=== PATIENT | male | born 1950 ===

== ENCOUNTER 2019-07-24 11:07 | Emergency (ER) | payer MEDICARE, SELFPAY | END 2019-07-24 11:10 | disposition left against medical advice (07) | LOC: ER 08-12 08:12 | PROVIDERS: Emergency Provider Emergency Medicine; Family Provider Family Medicine | DX: Z53.21 Procedure and treatment not carried out due to patient leaving prior to being seen by health care provider (principal) | CPT/HCPCS: 99281 ==

== ENCOUNTER 2020-08-18 13:19 | Outpatient (CLI) | payer MEDICARE, SELFPAY | END 2020-08-18 13:20 | disposition home or self-care (01) | LOC: WOUND 13:22 | PROVIDERS: Family Provider Family Medicine; Visit Provider Thoracic Surgery (Cardiothoracic Vascular Surgery) | DX: E11.622 Type 2 diabetes mellitus with other skin ulcer (principal); L97.822 Non-pressure chronic ulcer of other part of left lower leg with fat layer exposed | CPT/HCPCS: 11042; G0463 ==

== ENCOUNTER 2020-08-25 09:20 | Outpatient (CLI) | payer MEDICARE, SELFPAY ==
--- NOTE | 2020-08-25 10:29 | XR_ITS ---
WS: [id number] LEFT TIBIA-FIBULA 2 VIEWS HISTORY: PAIN, REDNESS, NONHEALING ULCER COMPARISON: None available. Below the knee amputation. There is soft tissue edema in the amputation region. Very minimal soft tis hardy ulceration along the medial amputation region. The cortex of the bone is intact. No osteomyelitis identified radiographically. Vascular calcifications in the femoral artery. XR/XR tibia fibula LT 2V [id number] IMPRESSION: 1. Below the knee amputation with no radiographic evidence for osteomyelitis. 2. Soft tissue edema distal to the tibia amputation.
== END 2020-08-25 09:21 | disposition home or self-care (01) ==
PROVIDERS: Family Provider Family Medicine; Visit Provider Thoracic Surgery (Cardiothoracic Vascular Surgery)
DX: E11.622 Type 2 diabetes mellitus with other skin ulcer (principal); L53.9 Erythematous condition, unspecified; L97.822 Non-pressure chronic ulcer of other part of left lower leg with fat layer exposed; R52 Pain, unspecified
CPT/HCPCS: 11042; 73590

== ENCOUNTER 2020-09-01 08:58 | Outpatient (CLI) | payer MEDICARE, SELFPAY | END 2020-09-01 08:59 | disposition home or self-care (01) | LOC: WOUND 09:04 | PROVIDERS: Family Provider Family Medicine; Visit Provider Thoracic Surgery (Cardiothoracic Vascular Surgery) | DX: E11.622 Type 2 diabetes mellitus with other skin ulcer (principal); L97.822 Non-pressure chronic ulcer of other part of left lower leg with fat layer exposed | CPT/HCPCS: 11042 ==

== ENCOUNTER 2020-09-08 14:13 | Outpatient (CLI) | payer MEDICARE, SELFPAY | END 2020-09-08 14:14 | disposition home or self-care (01) | LOC: WOUND 14:14 | PROVIDERS: Family Provider Family Medicine; Visit Provider Thoracic Surgery (Cardiothoracic Vascular Surgery) | DX: E11.622 Type 2 diabetes mellitus with other skin ulcer (principal); L97.822 Non-pressure chronic ulcer of other part of left lower leg with fat layer exposed | CPT/HCPCS: 11042 ==

== ENCOUNTER 2020-09-15 08:50 | Outpatient (CLI) | payer MEDICARE, SELFPAY | END 2020-09-15 08:51 | disposition home or self-care (01) | LOC: WOUND 08:51 | PROVIDERS: PCP Family Medicine; Visit Provider Thoracic Surgery (Cardiothoracic Vascular Surgery) | DX: E11.622 Type 2 diabetes mellitus with other skin ulcer (principal); L97.822 Non-pressure chronic ulcer of other part of left lower leg with fat layer exposed | CPT/HCPCS: 11042 ==

== ENCOUNTER 2020-09-16 09:51 | Outpatient (CLI) | payer MEDICARE, SELFPAY ==
--- NOTE | 2020-09-16 10:36 | CT_ITS ---
WS: [id number] CT ABDOMEN AND PELVIS NONCONTRAST HISTORY: NEPHROLITHIASIS, RENAL CALCULUS WITH CALCULUS OF URETER TECHNIQUE: Imaging performed through the abdomen and pelvis. Coronal and sagittal reformats are submi tted. All CT scans at [facility] use at least one of these dose optimization techniques: automated exposure control; mA and/or kV adjustment per patient size (includes targeted exams where d ose is matched to clinical indication); or iterative reconstruction. DLP: 1078.43 mGycm COMPARISON: None available. Lower thorax: Lung bases are clear. Visualized heart is normal. No hiatal hernia. Liver: Mild hepatic steatosis. Granuloma in the LEFT hepatic lobe. No bile duct dilatation. Gallbladder: Well distended gallbladder contains stones. No wall thickening or acute cholecystitis. Pancreas: There is extensive calcification throughout the pancreas. Pancreas is atrophied. Spleen: Normal. Adrenal glands: Normal. No mass. Right kidney: Normal size RIGHT kidney. There is very mild perinephric stranding. Nonobstructing 2 mm calcification in the mid kidney. RIGHT ureter is normal. Left kidney: LEFT kidney is slightly enlarged. There is a double pigtail LEFT ureteral stent. The pro ximal end is coiled in the renal pelvis. Distal end is coiled in a nondistended bladder. There is per sistent mild to moderate hydronephrosis of the LEFT kidney despite the stent. The LEFT ureter is dila arlene nearly throughout its length. Suspicious for ureteral calcifications. Ureteral calcifications are in the mid and distal ureter measuring 4 to 5 mm. There are additional small calcifications in the L EFT renal pelvis which are nonobstructing. Aorta: Mild atherosclerosis with no aneurysm. There is very heavy calcific burden throughout the sple any artery. Mild ectasia of the mid splenic artery. Small shoddy retroperitoneal lymph nodes. Additional small lymph nodes along the inguinal regions. GI tract: Diffuse moderate fecal retention. The appendix is normal. No GI tract obstruction. Abdominal wall: Fat-containing umbilical hernia. Pelvis: Prostate gland is not identified. Nondistended urinary bladder. LEFT ureteral pigtail is cold in the nondistended bladder. Osseous structures: L4 anterolisthesis by 3 mm. No osteoblastic or osteolytic bone disease. Mild bila teral SI joint narrowing. CT/CT kidney stone [id number] IMPRESSION: 1. Double pigtail LEFT ureteral stent is in good position. 2. Despite the LEFT ureteral stent there is mild to moderate hydronephrosis an d hydroureter. 3. 2 calcific densities inseparable from the ureteral stent. These calcificati ons measure approximately 4 to 5 mm. One is at the mid ureter and a second is m ore distally. 4. Cholelithiasis. 5. Chronic pancreatitis. 6. 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
== END 2020-09-16 09:52 | disposition home or self-care (01) ==
LOC: RADWPI 09:56
PROVIDERS: PCP Family Medicine; Visit Provider Urology
DX: N20.2 Calculus of kidney with calculus of ureter (principal); I70.8 Atherosclerosis of other arteries; K86.1 Other chronic pancreatitis; K80.20 Calculus of gallbladder without cholecystitis without obstruction; Z96.0 Presence of urogenital implants
CPT/HCPCS: 74176

== ENCOUNTER 2020-09-22 08:43 | Outpatient (CLI) | payer MEDICARE, SELFPAY | END 2020-09-22 08:44 | disposition home or self-care (01) | LOC: WOUND 08:44 | PROVIDERS: PCP Family Medicine; Visit Provider Thoracic Surgery (Cardiothoracic Vascular Surgery) | DX: E11.622 Type 2 diabetes mellitus with other skin ulcer (principal); L97.822 Non-pressure chronic ulcer of other part of left lower leg with fat layer exposed | CPT/HCPCS: 11042; 87070; 87176; 87205 ==

== ENCOUNTER 2020-09-25 08:11 | Outpatient (CLI) | payer MEDICARE, SELFPAY ==
--- NOTE | 2020-09-25 08:33 | NM_ITS ---
WS: [id number] [place] bone 3 phase [id number] REASON FOR EXAM: TYPE 2 DIABETIC WITH SKIN ULCER TECHNICAL: 26.3 mCi of technetium 99m HDP was administered intravenously. Immediate blood flow, blood pool and two-hour delayed imaging was obtained focused on the left BKA amputation. FINDINGS: There is moderately increased blood flow and blood pool seen diffusely in the soft tissues of the lef t BKA stump. On the delayed images there is a small focus of increased uptake which appears to be wit hin the distal most of the amputated tibia at a location which shows organized periosteal reaction on the plain film of 08/25/2020. Moderate to mild uptake in the cervical spine and shoulders and sacroiliac joints compatible with deg enerative arthropathy. There is noted to be obstructive uropathy on the left. Previous CT scan 09/16/2020 demonstrates hydron ephrosis and hydroureter with a ureteral stent on the left. [place] bone 3 phase [id number] IMPRESSION: The bone scan findings indicate inflammatory change in the stump of the left BK A. However the findings are not definitive for since the blood flow and blood p ool are diffuse and mostly soft tissue in nature. Osteomyelitis is not excluded . If definitive diagnosis is required, most likely helpful examination would be a n MRI focused on the left BKA stump with and without intravenous contrast. For the diagnosis of osteomyelitis one would need to identify focal significant low intensity in the bone marrow in the distalmost remaining tibia and fibula on t he T1-weighted images with corresponding high signal on the T2 and with signifi cant contrast-enhancement. Definitive low signal on the T1-weighted images is crucial.
[2020-09-25 08:58] LABS: Basophils % 0.3 %; Eosinophils # 0.2 10^3/uL (0.0-0.8); Hematocrit 41.4 % (42.0-52.0); Hemoglobin 13.4 g/dL (11.7-16.6); Lymphocytes # 3.1 10^3/uL (0.8-4.8); Mean Corpuscular HGB Conc 32.4 g/dL (30.0-36.0); Mean Corpuscular Hemoglobin 30.8 pg (28.0-34.0); Mean Corpuscular Volume 95.2 fL (80-94); Mean Platelet Volume 12.3 fL (7.4-10.4); Monocytes # 0.7 10^3/uL (0.2-0.9); Monocytes % 5.9 %; Neutrophils # 7.72 10^3/uL (1.8-7.7); Neutrophils % 65.3 %; Nucleated Red Blood Cells % 0 %; Platelet Count 260 10^3/cmm (130-400); Red Blood Count 4.35 10^6/uL (4.1-5.3); Red Cell Distribution Width 12.6 % (12.1-15.1); White Blood Count 11.8 10^3/uL (4.0-10.0)
[2020-09-25 09:36] LABS: Anion Gap 13.1 (5-19); Blood Urea Nitrogen 21 mg/dL (8-23); C Reactive Protein 2.1 mg/L (0.0-4.9); Carbon Dioxide 26 mmol/L (22-29); Chloride 104 mmol/L (98-107); Glucose 118 mg/dL (65-115); Osmolality Calculated 292 mOsm/kg (285-295); Potassium 4.1 mmol/L (3.5-5.1); Sodium 139 mmol/L (136-145)
[2020-09-25 09:43] LABS: Estmated Average Glucose 166; Hemoglobin A1C 7.4 % (4.0-6.0)
[2020-09-25 10:36] LABS: Erythrocyte Sedimentation Rate 69 mm/hr (0-10)
== END 2020-09-25 08:12 | disposition home or self-care (01) ==
LOC: RAD 08:28
PROVIDERS: PCP Family Medicine; Visit Provider Thoracic Surgery (Cardiothoracic Vascular Surgery)
DX: E11.622 Type 2 diabetes mellitus with other skin ulcer (principal)
CPT/HCPCS: 78315; 80048; 83036; 85025; 85651; 86140; A9561

== ENCOUNTER 2020-09-29 08:58 | Outpatient (CLI) | payer MEDICARE, SELFPAY | END 2020-09-29 08:59 | disposition home or self-care (01) | LOC: WOUND 08:59 | PROVIDERS: PCP Family Medicine; Visit Provider Thoracic Surgery (Cardiothoracic Vascular Surgery) | DX: E11.622 Type 2 diabetes mellitus with other skin ulcer (principal); L97.822 Non-pressure chronic ulcer of other part of left lower leg with fat layer exposed; I96 Gangrene, not elsewhere classified; Z89.512 Acquired absence of left leg below knee; F17.210 Nicotine dependence, cigarettes, uncomplicated | CPT/HCPCS: 11042 ==

== ENCOUNTER 2020-10-06 08:53 | Outpatient (CLI) | payer MEDICARE, SELFPAY | END 2020-10-06 08:54 | disposition home or self-care (01) | LOC: WOUND 08:55 | PROVIDERS: PCP Family Medicine; Visit Provider Thoracic Surgery (Cardiothoracic Vascular Surgery) | DX: E11.622 Type 2 diabetes mellitus with other skin ulcer (principal); L97.822 Non-pressure chronic ulcer of other part of left lower leg with fat layer exposed | CPT/HCPCS: 11042 ==

== ENCOUNTER 2020-10-16 13:52 | Outpatient (CLI) | payer MEDICARE, SELFPAY ==
--- NOTE | 2020-10-16 14:01 | XR_ITS ---
WS: [id number] Abdomen series, Flat and upright 10/16/2020 Clinical Data: PROSTATE CANCER Comparison: None. Findings: No free air is seen beneath the diaphragms. No abnormal intra-abdominal masses are seen. T here are midabdominal calcifications probably in the pancreas. There are calcifications in the left u pper quadrant which are probably in the splenic artery. No definite renal calcifications are seen. Th ere is fecal material throughout the colon. XR/XR abdomen min 2V [id number] Impression: 1. Mid abdominal calcifications which are probably from chronic pancreatitis an d in the splenic artery. 2. Negative for definite renal or ureteral calcifications. 3. Moderate amount of fecal material throughout the colon.
--- NOTE | 2020-10-16 14:02 | US_ITS ---
WS: [id number] RENAL ULTRASOUND HISTORY: PROSTATE CANCER COMPARISON: None available. TECHNIQUE: 2-D and color Doppler imaging of the kidney submitted. Right kidney: 12.4 cm x 4.5 cm x 6.3 cm. Normal echogenicity. Tiny cortical hypodensities are probably cysts but too small to characterize. Th e largest measures 1.4 x 1.2 x 1.2 cm from the upper pole. Left kidney: 12.4 cm x 7.4 cm x 5.3 cm. Normal size kidney. Mild hydronephrosis. Multiple small cysts from the LEFT kidney. The largest from the lower pole measures 2.6 x 2.7 x 2.5 cm. No solid mass. Aorta: Normal. Urinary Bladder: Nondistended. US/US renal BI* [id number] IMPRESSION: 1. Mild LEFT hydronephrosis. 2. LEFT renal cysts. The largest measures 2.6 x 2.7 x 2.5 cm.
[2020-10-16 14:46] LABS: Basophils % 0.5 %; Eosinophils # 0.2 10^3/uL (0.0-0.8); Eosinophils % 2.7 %; Hematocrit 38.6 % (42.0-52.0); Hemoglobin 12.6 g/dL (11.7-16.6); Lymphocytes # 2.2 10^3/uL (0.8-4.8); Lymphocytes % 25.2 %; Mean Corpuscular HGB Conc 32.6 g/dL (30.0-36.0); Mean Corpuscular Hemoglobin 30.8 pg (28.0-34.0); Mean Corpuscular Volume 94.4 fL (80-94); Monocytes # 0.5 10^3/uL (0.2-0.9); Monocytes % 5.9 %; Neutrophils # 5.79 10^3/uL (1.8-7.7); Neutrophils % 65.1 %; Nucleated Red Blood Cells % 0 %; Platelet Count 242 10^3/cmm (130-400); Red Blood Count 4.09 10^6/uL (4.1-5.3); Red Cell Distribution Width 13.1 % (12.1-15.1); White Blood Count 8.9 10^3/uL (4.0-10.0)
[2020-10-16 15:43] LABS: Prostate Specific Antigen 0.201 ng/mL (0-4)
[2020-10-16 15:57] LABS: Anion Gap 13.3 (5-19); Blood Urea Nitrogen 21 mg/dL (8-23); Calcium 8.5 mg/dL (8.5-10.5); Carbon Dioxide 23 mmol/L (22-29); Chloride 108 mmol/L (98-107); Glucose 189 mg/dL (65-115); Osmolality Calculated 300 mOsm/kg (285-295); Potassium 3.3 mmol/L (3.5-5.1); Sodium 141 mmol/L (136-145)
[2020-10-16 16:04] LABS: Estmated Average Glucose 180; Hemoglobin A1C 7.9 % (4.0-6.0)
== END 2020-10-16 13:53 | disposition home or self-care (01) ==
PROVIDERS: PCP Family Medicine; Visit Provider Urology
DX: N20.0 Calculus of kidney (principal); N39.3 Stress incontinence (female) (male); C61 Malignant neoplasm of prostate; N13.30 Unspecified hydronephrosis; Q61.02 Congenital multiple renal cysts
CPT/HCPCS: 36415; 74019; 76770; 80048; 83036; 84153; 85025

== ENCOUNTER 2020-10-20 09:50 | Outpatient (CLI) | payer MEDICARE, SELFPAY ==
--- NOTE | 2020-10-20 12:48 | USCV_ITS ---
Bala Hankins Age: 70 Gender: M : 1950 Exam Date: 10/20/2020 12:57 Ordering Phys: Negro Peraza MD (Andy) ([email or web address]) Technologist: Marah Carter [place] [facility] [place]: STUMP IS SWOLLEN. HISTORY: Lt Stump is swollen. PROCEDURES: Venous duplex imaging was performed in only the left lower extremity. The following venous structures were evaluated: common femoral vein, profunda vein, proximal portion of the greater saphenous vein, superficial femoral vein, and the popliteal vein, peroneal and bk GSV.. FINDINGS: Normal 2-D Doppler and augmentation and compressibility throughout the lower extremity venous structures. Additional imaging through the proximal calf veins also reveals no thrombus. Limited evaluation of the greater saphenous vein is patent with no thrombus. CONCLUSIONS No DVT left lower extremity. Dr. Valencia Carney DO (Electronically Signed) Final Date: 20 October 2020 15:53 S
== END 2020-10-20 09:51 | disposition home or self-care (01) ==
PROVIDERS: PCP Family Medicine; Visit Provider Thoracic Surgery (Cardiothoracic Vascular Surgery)
DX: E11.622 Type 2 diabetes mellitus with other skin ulcer (principal); M79.89 Other specified soft tissue disorders; L97.822 Non-pressure chronic ulcer of other part of left lower leg with fat layer exposed; R22.43 Localized swelling, mass and lump, lower limb, bilateral
CPT/HCPCS: 11042; 93971

== ENCOUNTER 2020-10-28 13:45 | Outpatient (CLI) | payer MEDICARE, SELFPAY | END 2020-10-28 13:46 | disposition home or self-care (01) | LOC: WOUND 13:47 | PROVIDERS: PCP Family Medicine; Visit Provider Thoracic Surgery (Cardiothoracic Vascular Surgery) | DX: E11.622 Type 2 diabetes mellitus with other skin ulcer (principal); L97.822 Non-pressure chronic ulcer of other part of left lower leg with fat layer exposed | CPT/HCPCS: 11042 ==

== ENCOUNTER 2020-11-10 10:02 | Outpatient (CLI) | payer MEDICARE, SELFPAY | END 2020-11-10 10:03 | disposition home or self-care (01) | LOC: WOUND 10:03 | PROVIDERS: PCP Family Medicine; Visit Provider Thoracic Surgery (Cardiothoracic Vascular Surgery) | DX: E11.622 Type 2 diabetes mellitus with other skin ulcer (principal); L97.822 Non-pressure chronic ulcer of other part of left lower leg with fat layer exposed | CPT/HCPCS: 11042 ==

== ENCOUNTER 2020-11-25 15:09 | Outpatient (CLI) | payer MEDICARE, SELFPAY | END 2020-11-25 15:10 | disposition home or self-care (01) | LOC: WOUND 15:10 | PROVIDERS: PCP Family Medicine; Visit Provider Thoracic Surgery (Cardiothoracic Vascular Surgery) | DX: E11.622 Type 2 diabetes mellitus with other skin ulcer (principal); L97.822 Non-pressure chronic ulcer of other part of left lower leg with fat layer exposed | CPT/HCPCS: 11042 ==

== ENCOUNTER 2020-12-08 08:43 | Outpatient (CLI) | payer MEDICARE, SELFPAY | END 2020-12-08 08:44 | disposition home or self-care (01) | LOC: WOUND 08:46 | PROVIDERS: PCP Family Medicine; Visit Provider Thoracic Surgery (Cardiothoracic Vascular Surgery) | DX: E11.622 Type 2 diabetes mellitus with other skin ulcer (principal); L97.821 Non-pressure chronic ulcer of other part of left lower leg limited to breakdown of skin | CPT/HCPCS: 97597 ==

== ENCOUNTER 2020-12-22 09:19 | Outpatient (CLI) | payer MEDICARE, SELFPAY | END 2020-12-22 09:20 | disposition home or self-care (01) | LOC: WOUND 09:21 | PROVIDERS: PCP Family Medicine; Visit Provider Thoracic Surgery (Cardiothoracic Vascular Surgery) | DX: Z09 Encounter for follow-up examination after completed treatment for conditions other than malignant neoplasm (principal) | CPT/HCPCS: 99212 ==